=== PATIENT | male | born 1970 | race Caucasian/White ===

== ENCOUNTER 2018-05-08 14:12 | Emergency (ER) | payer BC ==
[2018-05-08] MEDS ORDERED: LORazepam 2 MG/ML SDV IVPUSH ONE ×2 (15:21→18:18)
[2018-05-08] MEDS ORDERED: Lactated Ringers 1,000 ML IV ONE ×2 (15:21→15:59)
[2018-05-08] MEDS ORDERED: Sodium Chloride 0.9% 10 ML Syringe FLUSH PRN (15:21)
[2018-05-08] MEDS ORDERED: Ondansetron 4 MG/2 ML SDV IVPUSH ONE (15:21)
[2018-05-08] MEDS: Potassium Chloride 10 MEQ in Premix Bag 1 BAG IV SCH ×2 (16:34→16:45)
--- NOTE | 2018-05-08 18:29 | EDM.PDOCBH ---
ED HPI GENERAL MEDICAL PROBLEM - General Chief Complaint: Drug or Alcohol Abuse Stated Complaint: VOMITING Time Seen by Provider: 05/08/18 15:10 Source of Information: Reports: Patient, Significant Other History Limitations: Reports: No Limitations - History of Present Illness INITIAL COMMENTS - FREE TEXT/NARRATIVE: 48 year old male presets for evaluation and treatment of nausea, vomiting and diarrhea. Reports he has been nauseated and vomiting since , about 2 weeks in total now. Reports 6-7 episodes of vomiting per day. Reports he noticed blood in his emesis the first day (04-28) but has had none since. Also reports diarrhea recently but states since he is vomiting everything up he has not had any diarrhea in the last few days. Reports feeling feverish, chilled and shaky. Denies any chest pain, abdominal pain or shortness of breath. Denies any hallucinations or seizures. Patient reports he used to drink alcohol heavily, is rather elusive with how recently he quite drinking heavily. Reports his last drink of alcohol was Thursday , his states he only had about 1/2 of a beer. States recently he has only been drinking a "couple" of beers per night and a few shots of whiskey. Has been drinking alcohol since about 1989. Denies any illicit drug usage. Patient denies any recent travel. Patient denies any ill contacts. Patient denies any recent antibiotic usage. - Related Data Allergies Allergy/AdvReac Type Severity Reaction Status Date / Time No Known Allergies Allergy Verified 05/08/18 14:39 Home Meds: Home Meds LORazepam [Ativan] 1 mg PO Q6H PRN #20 tab 05/08/18 [Rx] Ondansetron [Zofran ODT] 4 mg PO Q6H PRN #20 tab.dis 05/08/18 [Rx] Past Medical History Psychiatric History: Reports: Addiction Other Psychiatric History: alcohol Social & Family History - Tobacco Use Smoking Status *Q: Current Every Day Smoker Years of Tobacco use: 28 Packs/Tins Daily: 0.5 - Caffeine Use Caffeine Use: Reports: Coffee Other Caffeine Use: stopped drinking coffe just before and thought that is what the shaking is from - Recreational Drug Use Recreational Drug Use: No ED ROS GENERAL - Review of Systems Review Of Systems: See Below Constitutional: Reports: Fever, Chills Respiratory: Denies: Shortness of Breath Cardiovascular: Denies: Chest Pain GI/Abdominal: Reports: Diarrhea, Hematemesis (x1 about 2 weeks ago, none since) , Vomiting. Denies: Abdominal Pain Neurological: Reports: Tremors. Denies: Seizure Psychiatric: Denies: Depression, Hallucinations, Suicidal Ideation ED EXAM, BEHAVIORAL HEALTH - Physical Exam Exam: See Below Exam Limited By: No Limitations General Appearance: Alert, WD/WN, No Apparent Distress, Anxious Eye Exam: Bilateral Eye: Normal Inspection Ears: Normal External Exam Nose: Normal Inspection Throat/Mouth: Normal Inspection, Normal Lips, Normal Voice, No Airway Compromise , Other (dry mucus membranes) Respiratory/Chest: No Respiratory Distress, Lungs Clear, Normal Breath Sounds Cardiovascular: Normal Peripheral Pulses, Regular Rate, Rhythm, No Murmur GI/Abdominal: Normal Bowel Sounds, Soft, Non-Tender Neurological: Alert, Normal Mood/Affect, Normal Cognition, Tremor (bilteral hands) Psychiatric: Alert, Normal Affect, Normal Mood. No: Homicidal Thoughts, Suicidal Thoughts Skin Exam: Warm, Dry, Diaphoretic (slight), Pallor (slight) COURSE, BEHAVIORAL HEALTH COMP - Course Vital Signs: Last Vital Signs Temp 97.7 F 05/08/18 14:36 Pulse 93 05/08/18 14:36 Resp 20 05/08/18 14:36 BP 178/104 H 05/08/18 14:36 Pulse Ox 97 05/08/18 14:36 Orders, Labs, Meds: Laboratory Tests 05/08/18 05/08/18 05/08/18 Range/Units 14:50 14:50 15:00 WBC 5.32 (4.23-9.07) K/mm3 RBC 4.28 L (4.63-6.08) M/mm3 Hgb 14.6 (13.7-17.5) gm/L Hct 41.9 (40.1-51.0) % MCV 97.9 H (79.0-92.2) fl MCH 34.1 H (25.7-32.2) pg MCHC 34.8 (32.2-35.5) g/dl RDW Std Deviation 49.3 H (35.1-43.9) fL Plt Count 114 L (163-337) K/mm3 MPV 10.4 (9.4-12.3) fl Neutrophils % (Manual) 85 H (40-60) % Band Neutrophils % 0 (0-10) % Lymphocytes % (Manual) 11 L (20-40) % Atypical Lymphs % 0 % Monocytes % (Manual) 2 (2-10) % Eosinophils % (Manual) 1 (0.8-7.0) % Basophils % (Manual) 1 (0.2-1.2) Platelet Estimate Adequate RBC Morph Comment Normal Sodium (136-145) mEq/L Potassium (3.5-5.1) mEq/L Chloride (98-107) mEq/L Carbon Dioxide (21-32) mEq/L Anion Gap (5-15) BUN (7-18) mg/dL Creatinine (0.7-1.3) mg/dL Est Cr Clr Drug Dosing mL/min Estimated GFR (MDRD) (>60) mL/min BUN/Creatinine Ratio (14-18) Glucose (74-106) mg/dL Calcium (8.5-10.1) mg/dL Magnesium (1.8-2.4) mg/dl Total Bilirubin (0.2-1.0) mg/dL AST (15-37) U/L ALT (16-63) U/L Alkaline Phosphatase (46-116) U/L C-Reactive Protein (<1.0) mg/dL Total Protein (6.4-8.2) g/dl Albumin (3.4-5.0) g/dl Globulin gm/dL Albumin/Globulin Ratio (1-2) Urine Color Yellow (Yellow) Urine Appearance Slt cloudy H (Clear) Urine pH >=9.0 H (5.0-8.0) Ur Specific [place] 1.015 (1.005-1.030) Urine Protein 3+ H (Negative) Urine Glucose (UA) Negative (Negative) Urine Ketones 2+ H (Negative) Urine Occult Blood Negative (Negative) Urine Nitrite Negative (Negative) Urine Bilirubin 1+ H (Negative) Urine Urobilinogen 1.0 (0.2-1.0) Ur Leukocyte Esterase Negative (Negative) Urine RBC 0-5 (0-5) /hpf Urine WBC 0-5 (0-5) /hpf Ur Epithelial Cells 0-5 (0-5) /hpf Urine Bacteria Few (FEW) /hpf Urine Mucus Moderate H (FEW) /hpf Urine Opiates Screen Negative (NBHMQH=932) Ur Buprenorphine Scrn Negative (CUTOFF=10) Ur Oxycodone Screen Negative (DUV4TW=805) Urine Methadone Screen Negative (KBJ5GA=686) Ur Propoxyphene Screen Negative (EKKXXO=396) Ur Barbiturates Screen Negative (WEXJKG=489) Ur Tricyclics Screen Negative (EKVFIZ=554) Ur Phencyclidine Scrn Negative (CUTOFF=25) Ur Amphetamine Screen Negative (DQALIP=703) U Methamphetamines Scrn Negative (YRRJNG=682) U Benzodiazepines Scrn Negative (JHVNPK=625) U Cocaine Metab Screen Negative (YYPEIB=959) U Marijuana (THC) Screen Negative (CUTOFF=50) Ethyl Alcohol (0.00) gm% 05/08/18 05/08/18 Range/Units 15:00 15:00 WBC (4.23-9.07) K/mm3 RBC (4.63-6.08) M/mm3 Hgb (13.7-17.5) gm/L Hct (40.1-51.0) % MCV (79.0-92.2) fl MCH (25.7-32.2) pg MCHC (32.2-35.5) g/dl RDW Std Deviation (35.1-43.9) fL Plt Count (163-337) K/mm3 MPV (9.4-12.3) fl Neutrophils % (Manual) (40-60) % Band Neutrophils % (0-10) % Lymphocytes % (Manual) (20-40) % Atypical Lymphs % % Monocytes % (Manual) (2-10) % Eosinophils % (Manual) (0.8-7.0) % Basophils % (Manual) (0.2-1.2) Platelet Estimate RBC Morph Comment Sodium 144 (136-145) mEq/L Potassium 3.2 L (3.5-5.1) mEq/L Chloride 101 (98-107) mEq/L Carbon Dioxide 31 (21-32) mEq/L Anion Gap 15.2 H (5-15) BUN 9 (7-18) mg/dL Creatinine 1.0 (0.7-1.3) mg/dL Est Cr Clr Drug Dosing 94.29 mL/min Estimated GFR (MDRD) > 60 (>60) mL/min BUN/Creatinine Ratio 9.0 L (14-18) Glucose 160 H (74-106) mg/dL Calcium 9.2 (8.5-10.1) mg/dL Magnesium 2.1 (1.8-2.4) mg/dl Total Bilirubin 0.8 (0.2-1.0) mg/dL AST 172 H (15-37) U/L ALT 128 H (16-63) U/L Alkaline Phosphatase 63 (46-116) U/L C-Reactive Protein < 0.2 (<1.0) mg/dL Total Protein 7.9 (6.4-8.2) g/dl Albumin 4.3 (3.4-5.0) g/dl Globulin 3.6 gm/dL Albumin/Globulin Ratio 1.2 (1-2) Urine Color (Yellow) Urine Appearance (Clear) Urine pH (5.0-8.0) Ur Specific [place] (1.005-1.030) Urine Protein (Negative) Urine Glucose (UA) (Negative) Urine Ketones (Negative) Urine Occult Blood (Negative) Urine Nitrite (Negative) Urine Bilirubin (Negative) Urine Urobilinogen (0.2-1.0) Ur Leukocyte Esterase (Negative) Urine RBC (0-5) /hpf Urine WBC (0-5) /hpf Ur Epithelial Cells (0-5) /hpf Urine Bacteria (FEW) /hpf Urine Mucus (FEW) /hpf Urine Opiates Screen (OZEUVI=486) Ur Buprenorphine Scrn (CUTOFF=10) Ur Oxycodone Screen (HII2KL=273) Urine Methadone Screen (VMV6PV=374) Ur Propoxyphene Screen (WXEJUA=643) Ur Barbiturates Screen (GHPPGW=622) Ur Tricyclics Screen (ILPPSD=542) Ur Phencyclidine Scrn (CUTOFF=25) Ur Amphetamine Screen (AYOVWU=547) U Methamphetamines Scrn (UWEHPJ=684) U Benzodiazepines Scrn (WNIRCR=594) U Cocaine Metab Screen (HTPVKH=259) U Marijuana (THC) Screen (CUTOFF=50) Ethyl Alcohol 0.00 (0.00) gm% Medications Discontinued Medications Generic Name Dose Route Start Last Admin Trade Name Freq PRN Reason Stop Dose Admin Lactated Ringer's 1,000 mls @ 999 mls/hr 05/08/18 15:21 05/08/18 15:41 Ringers, Lactated IV 05/08/18 16:21 999 mls/hr .BOLUS ONE Administration Lactated Ringer's 1,000 mls @ 999 mls/hr 05/08/18 15:59 05/08/18 16:52 Ringers, Lactated IV 05/08/18 16:59 999 mls/hr .BOLUS ONE Administration Potassium Chloride 10 meq/ 100 mls @ 100 mls/hr 05/08/18 16:00 05/08/18 16:45 Premix IV 100 mls/hr ASDIRECTED LORENE Administration Lorazepam 1 mg 05/08/18 15:21 05/08/18 15:43 Ativan IVPUSH 05/08/18 15:22 1 mg ONETIME ONE Administration Lorazepam 1 mg 05/08/18 18:18 05/08/18 18:27 Ativan IVPUSH 05/08/18 18:19 1 mg ONETIME ONE Administration Ondansetron HCl 4 mg 05/08/18 15:21 05/08/18 15:42 Zofran IVPUSH 05/08/18 15:22 4 mg ONETIME ONE Administration Sodium Chloride 10 ml 05/08/18 15:21 05/08/18 15:42 Saline Flush FLUSH 10 ml ASDIRECTED PRN Administration Keep Vein Open Re-Assessment/Re-Exam: 18:19 I have reviewed the labs with the patient. Shakiness significantly improved with the ativan. Nausea improved and has not vomited while in the ER. I asked his to step out. He maintains he has not had a drink since Thursday. He does not feel that he is a heavy drinker. His labs however suggest he is drinking more than he eludes to evident by the elevated liver enzymes, slightly low platelets and elevated MCV and MVH. He denies any suicidal ideation. Plan will be to discharge him home with resources for counseling and alcohol addition in [facility]. I will prescribe him some ativan and zofran. I spoke with the patient's . She reports his sister dies of cancer recently and this has been very hard on him. She reports for the last 2 weeks he has not been active and is laying in bed. She reports he has told multiple family members his "kidneys are shutting down" despite having not been seen for any kidney problems. He has not been seen until today. She suspects he is depressed but has not made suicidal comments to her. Departure - Departure Time of Disposition: 18:19 Disposition: Home, Self-Care 01 Condition: Fair Clinical Impression: Vomiting, Alcohol withdrawal syndrome - Discharge Information *PRESCRIPTION DRUG MONITORING PROGRAM REVIEWED*: No *COPY OF PRESCRIPTION DRUG MONITORING REPORT IN PATIENT JOSH: No Prescriptions: LORazepam [Ativan] 1 mg PO Q6H PRN #20 tab PRN Reason: Anxiety Ondansetron [Zofran ODT] 4 mg PO Q6H PRN #20 tab.dis PRN Reason: Nausea Instructions: Alcohol Withdrawal, Vomiting, Adult Referrals: PCP,None [Primary Care Provider] - Cindy Campuzano PA-C [Physician Calenderer] - Additional Instructions: you were given medication in the ER that can make you drowsy while in the ER today. It is not recommended that you drive or operate machinery within 10 hours of taking this medication. He may take the Zofran 1 tab sublingual every 6-8 hours as needed for nausea. Ativan 1 tab every 6-8 hours as needed for shakiness and anxiety. make sure you are drinking plenty of fluids. Drink water, Gatorade or Powerade. Recommend a bland diet as tole. Recommendations include crackers, soup broth, yogurt etc. Recommend a probiotic. These are available [id number]. You may take an antidiarrheal medication to help the diarrhea you have been having. Recommend follow-up with family medicine this week. Here in [place] and recommend [facility] per Dr. Carballo. Please call [phone] to schedule with one of these providers. A brochure of local resources has been provided for you for help with alcohol abuse as well as counselors. Please return to the ER for symptoms change or worsen.
== END 2018-05-08 18:58 | disposition home or self-care (01) ==
LOC: JD.ED 14:12
DX: F10.239 Alcohol dependence with withdrawal, unspecified (principal); R11.10 Vomiting, unspecified; F17.210 Nicotine dependence, cigarettes, uncomplicated
CPT/HCPCS: 36415; 80053; 80306; 81001; 83735; 85007; 85027; 86140; 96361; 96365; 96375; 96376; 99284; G0480; J2060; J2405; J3480; J7120

== ENCOUNTER 2019-05-05 19:09 | Emergency (ER) | payer BC ==
--- NOTE | 2019-05-05 20:03 | EDM.PDOCBH ---
ED HPI GENERAL MEDICAL PROBLEM - General Chief Complaint: Behavioral/Psych Stated Complaint: RYANNE PERALES Time Seen by Provider: 05/05/19 20:02 - History of Present Illness INITIAL COMMENTS - FREE TEXT/NARRATIVE: 49-year-old male who is intoxicated has some suicidal ideation and intent. This started today the patient's been drinking quite heavily. 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 This last summer he went to rehab and did really well he was dry up until March. Then he started drinking again patient is accompanied by his he is cooperative. At this point he is not sure he wants to go back to rehab as he is already been through that. Ever, at this time the patient is cooperative and willing to allow an evaluation. The patient said he had a plan to kill himself but will not elaborate on it he did buy a couple of bottles of whiskey before his brought him brought him in. - Related Data Allergies Allergy/AdvReac Type Severity Reaction Status Date / Time shellfish derived Allergy Swelling Verified 05/05/19 19:45 Home Meds: Home Meds LORazepam [Ativan] 1 mg PO Q8H PRN #12 tablet 05/06/19 [Rx] Past Medical History Cardiovascular History: Reports: Hypertension Psychiatric History: Reports: Addiction, PTSD Other Psychiatric History: alcohol - Past Surgical History GI Surgical History: Reports: Hernia, Inguinal Social & Family History - Tobacco Use Smoking Status *Q: Current Every Day Smoker Years of Tobacco use: 30 Packs/Tins Daily: 1 - Caffeine Use Caffeine Use: Reports: Coffee, Soda Other Caffeine Use: stopped drinking coffe just before lyndsey and thought that is what the shaking is from ED ROS GENERAL - Review of Systems Review Of Systems: See Below Constitutional: Reports: No Symptoms HEENT: Reports: No Symptoms Respiratory: Reports: No Symptoms Cardiovascular: Reports: No Symptoms Endocrine: Reports: No Symptoms GI/Abdominal: Reports: No Symptoms : Reports: No Symptoms Musculoskeletal: Reports: No Symptoms Skin: Reports: No Symptoms Neurological: Reports: No Symptoms Psychiatric: Reports: Agitation, Anxiety, Suicidal Ideation. Denies: Hallucinations Hematologic/Lymphatic: Reports: No Symptoms Immunologic: Reports: No Symptoms ED EXAM, BEHAVIORAL HEALTH - Physical Exam Exam: See Below Exam Limited By: No Limitations General Appearance: Alert, No Apparent Distress Eye Exam: Bilateral Eye: Normal Inspection Ears: Normal External Exam, Normal Canal, Hearing Grossly Normal, Normal TMs Nose: Normal Inspection, Normal Mucosa, No Blood Throat/Mouth: Normal Teeth Head: Atraumatic, Normocephalic Neck: Normal Inspection, Supple, Non-Tender, Full Range of Motion. No: Lymphadenopathy (L), Lymphadenopathy (R) Respiratory/Chest: No Respiratory Distress, Lungs Clear, Normal Breath Sounds Cardiovascular: Regular Rate, Rhythm, No Edema, No Murmur GI/Abdominal: Normal Bowel Sounds, Soft, Non-Tender Rectal (Males) Exam: Perirectal Abscess Back Exam: Normal Inspection. No: CVA Tenderness (L), CVA Tenderness (R) Extremities: Normal Inspection, No Pedal Edema Neurological: Alert, No Motor/Sensory Deficits Psychiatric: Alert (Cooperative he is intoxicated however) COURSE, BEHAVIORAL HEALTH COMP - Course Vital Signs: Last Vital Signs Temp 36.0 C 05/05/19 19:40 Pulse 93 05/05/19 19:40 Resp 16 05/05/19 19:40 BP 157/100 H 05/05/19 19:40 Pulse Ox 97 05/05/19 19:40 Orders, Labs, Meds: Active Orders 24 hr Category Date Time Status Folic Acid Med 05/05/19 20:30 Active 1 mg IV DAILY Medication Orders Folic Acid (Folic Acid) 1 mg IV DAILY LORENE Last Admin: 05/05/19 20:45 Dose: 1 mg Laboratory Tests 05/05/19 05/05/19 05/05/19 Range/Units 20:25 20:25 20:25 WBC 7.64 (4.23-9.07) K/mm3 RBC 5.20 (4.63-6.08) M/mm3 Hgb 16.2 (13.7-17.5) gm/dl Hct 48.4 (40.1-51.0) % MCV 93.1 H D (79.0-92.2) fl MCH 31.2 (25.7-32.2) pg MCHC 33.5 (32.2-35.5) g/dl RDW Std Deviation 50.5 H (35.1-43.9) fL Plt Count 221 (163-337) K/mm3 MPV 9.6 (9.4-12.3) fl Neut % (Auto) 63.8 (34.0-67.9) % Lymph % (Auto) 30.5 (21.8-53.1) % [place] % (Auto) 4.8 L (5.3-12.2) % Eos % (Auto) 0.4 L (0.8-7.0) Baso % (Auto) 0.4 (0.1-1.2) % Neut # (Auto) 4.87 (1.78-5.38) K/mm3 Lymph # (Auto) 2.33 (1.32-3.57) K/mm3 [place] # (Auto) 0.37 (0.30-0.82) K/mm3 Eos # (Auto) 0.03 L (0.04-0.54) K/mm3 Baso # (Auto) 0.03 (0.01-0.08) K/mm3 PT 9.6 L (9.7-12.0) SECONDS INR < 0.93 Sodium 144 (136-145) mEq/L Potassium 4.5 (3.5-5.1) mEq/L Chloride 104 (98-107) mEq/L Carbon Dioxide 28 (21-32) mEq/L Anion Gap 16.5 H (5-15) BUN 15 (7-18) mg/dL Creatinine 0.9 (0.7-1.3) mg/dL Est Cr Clr Drug Dosing 103.64 mL/min Estimated GFR (MDRD) > 60 (>60) mL/min BUN/Creatinine Ratio 16.7 (14-18) Glucose 106 (74-106) mg/dL Calcium 9.7 (8.5-10.1) mg/dL Total Bilirubin 0.3 (0.2-1.0) mg/dL AST 69 H (15-37) U/L ALT 90 H (16-63) U/L Alkaline Phosphatase 80 (46-116) U/L Total Protein 8.2 (6.4-8.2) g/dl Albumin 4.5 (3.4-5.0) g/dl Globulin 3.7 gm/dL Albumin/Globulin Ratio 1.2 (1-2) TSH 3rd Generation (0.358-3.74) uIU/mL Urine Color (Yellow) Urine Appearance (Clear) Urine pH (5.0-8.0) Ur Specific [place] (1.005-1.030) Urine Protein (Negative) Urine Glucose (UA) (Negative) Urine Ketones (Negative) Urine Occult Blood (Negative) Urine Nitrite (Negative) Urine Bilirubin (Negative) Urine Urobilinogen (0.2-1.0) Ur Leukocyte Esterase (Negative) Urine RBC (0-5) /hpf Urine WBC (0-5) /hpf Ur Squamous Epith Cells (0-5) /hpf Urine Bacteria (FEW) /hpf Urine Mucus (FEW) /hpf Urine Opiates Screen (HWQNVH=212) Ur Buprenorphine Scrn (CUTOFF=10) Ur Oxycodone Screen (IKV8QQ=412) Urine Methadone Screen (KFJ3QW=619) Ur Propoxyphene Screen (ORAYCA=437) Ur Barbiturates Screen (NWVNWU=315) Ur Tricyclics Screen (NMBVEG=255) Ur Phencyclidine Scrn (CUTOFF=25) Ur Amphetamine Screen (PLOFBG=135) U Methamphetamines Scrn (OZUDUM=764) U Benzodiazepines Scrn (ZUMWHF=645) U Cocaine Metab Screen (TPPRRK=499) U Marijuana (THC) Screen (CUTOFF=50) Ethyl Alcohol 0.32 (0.00) gm% 05/05/19 05/05/19 05/05/19 Range/Units 20:25 20:50 20:50 WBC (4.23-9.07) K/mm3 RBC (4.63-6.08) M/mm3 Hgb (13.7-17.5) gm/dl Hct (40.1-51.0) % MCV (79.0-92.2) fl MCH (25.7-32.2) pg MCHC (32.2-35.5) g/dl RDW Std Deviation (35.1-43.9) fL Plt Count (163-337) K/mm3 MPV (9.4-12.3) fl Neut % (Auto) (34.0-67.9) % Lymph % (Auto) (21.8-53.1) % [place] % (Auto) (5.3-12.2) % Eos % (Auto) (0.8-7.0) Baso % (Auto) (0.1-1.2) % Neut # (Auto) (1.78-5.38) K/mm3 Lymph # (Auto) (1.32-3.57) K/mm3 [place] # (Auto) (0.30-0.82) K/mm3 Eos # (Auto) (0.04-0.54) K/mm3 Baso # (Auto) (0.01-0.08) K/mm3 PT (9.7-12.0) SECONDS INR Sodium (136-145) mEq/L Potassium (3.5-5.1) mEq/L Chloride (98-107) mEq/L Carbon Dioxide (21-32) mEq/L Anion Gap (5-15) BUN (7-18) mg/dL Creatinine (0.7-1.3) mg/dL Est Cr Clr Drug Dosing mL/min Estimated GFR (MDRD) (>60) mL/min BUN/Creatinine Ratio (14-18) Glucose (74-106) mg/dL Calcium (8.5-10.1) mg/dL Total Bilirubin (0.2-1.0) mg/dL AST (15-37) U/L ALT (16-63) U/L Alkaline Phosphatase (46-116) U/L Total Protein (6.4-8.2) g/dl Albumin (3.4-5.0) g/dl Globulin gm/dL Albumin/Globulin Ratio (1-2) TSH 3rd Generation 2.032 (0.358-3.74) uIU/mL Urine Color Yellow (Yellow) Urine Appearance Clear (Clear) Urine pH 6.0 (5.0-8.0) Ur Specific [place] > or = 1.030 (1.005-1.030) Urine Protein 2+ H (Negative) Urine Glucose (UA) Negative (Negative) Urine Ketones 1+ H (Negative) Urine Occult Blood Negative (Negative) Urine Nitrite Negative (Negative) Urine Bilirubin Negative (Negative) Urine Urobilinogen 0.2 (0.2-1.0) Ur Leukocyte Esterase Negative (Negative) Urine RBC Not seen (0-5) /hpf Urine WBC 0-5 (0-5) /hpf Ur Squamous Epith Cells Not seen (0-5) /hpf Urine Bacteria Few (FEW) /hpf Urine Mucus Many H (FEW) /hpf Urine Opiates Screen Negative (QHWQIX=718) Ur Buprenorphine Scrn Negative (CUTOFF=10) Ur Oxycodone Screen Negative (VUH1SQ=345) Urine Methadone Screen Negative (AJQ8DW=290) Ur Propoxyphene Screen Negative (HSVYQU=413) Ur Barbiturates Screen Negative (ZECUEI=985) Ur Tricyclics Screen Negative (UPJOAV=720) Ur Phencyclidine Scrn Negative (CUTOFF=25) Ur Amphetamine Screen Negative (KBUVEK=289) U Methamphetamines Scrn Negative (OPAGRE=670) U Benzodiazepines Scrn Negative (MBHUQH=327) U Cocaine Metab Screen Negative (JAIRBR=700) U Marijuana (THC) Screen Negative (CUTOFF=50) Ethyl Alcohol (0.00) gm% 05/06/19 Range/Units 05:47 WBC (4.23-9.07) K/mm3 RBC (4.63-6.08) M/mm3 Hgb (13.7-17.5) gm/dl Hct (40.1-51.0) % MCV (79.0-92.2) fl MCH (25.7-32.2) pg MCHC (32.2-35.5) g/dl RDW Std Deviation (35.1-43.9) fL Plt Count (163-337) K/mm3 MPV (9.4-12.3) fl Neut % (Auto) (34.0-67.9) % Lymph % (Auto) (21.8-53.1) % [place] % (Auto) (5.3-12.2) % Eos % (Auto) (0.8-7.0) Baso % (Auto) (0.1-1.2) % Neut # (Auto) (1.78-5.38) K/mm3 Lymph # (Auto) (1.32-3.57) K/mm3 [place] # (Auto) (0.30-0.82) K/mm3 Eos # (Auto) (0.04-0.54) K/mm3 Baso # (Auto) (0.01-0.08) K/mm3 PT (9.7-12.0) SECONDS INR Sodium (136-145) mEq/L Potassium (3.5-5.1) mEq/L Chloride (98-107) mEq/L Carbon Dioxide (21-32) mEq/L Anion Gap (5-15) BUN (7-18) mg/dL Creatinine (0.7-1.3) mg/dL Est Cr Clr Drug Dosing mL/min Estimated GFR (MDRD) (>60) mL/min BUN/Creatinine Ratio (14-18) Glucose (74-106) mg/dL Calcium (8.5-10.1) mg/dL Total Bilirubin (0.2-1.0) mg/dL AST (15-37) U/L ALT (16-63) U/L Alkaline Phosphatase (46-116) U/L Total Protein (6.4-8.2) g/dl Albumin (3.4-5.0) g/dl Globulin gm/dL Albumin/Globulin Ratio (1-2) TSH 3rd Generation (0.358-3.74) uIU/mL Urine Color (Yellow) Urine Appearance (Clear) Urine pH (5.0-8.0) Ur Specific [place] (1.005-1.030) Urine Protein (Negative) Urine Glucose (UA) (Negative) Urine Ketones (Negative) Urine Occult Blood (Negative) Urine Nitrite (Negative) Urine Bilirubin (Negative) Urine Urobilinogen (0.2-1.0) Ur Leukocyte Esterase (Negative) Urine RBC (0-5) /hpf Urine WBC (0-5) /hpf Ur Squamous Epith Cells (0-5) /hpf Urine Bacteria (FEW) /hpf Urine Mucus (FEW) /hpf Urine Opiates Screen (SIPQMC=267) Ur Buprenorphine Scrn (CUTOFF=10) Ur Oxycodone Screen (EMP6HZ=226) Urine Methadone Screen (IEX8DQ=649) Ur Propoxyphene Screen (PZELDJ=545) Ur Barbiturates Screen (NVTLQP=824) Ur Tricyclics Screen (HZUQVR=822) Ur Phencyclidine Scrn (CUTOFF=25) Ur Amphetamine Screen (HXOVQT=796) U Methamphetamines Scrn (KFIVSL=430) U Benzodiazepines Scrn (FURDTQ=064) U Cocaine Metab Screen (NRLNPU=187) U Marijuana (THC) Screen (CUTOFF=50) Ethyl Alcohol 0.05 (0.00) gm% Medications Generic Name Dose Route Start Last Admin Trade Name Freq PRN Reason Stop Dose Admin Folic Acid 1 mg 05/05/19 20:30 05/05/19 20:45 Folic Acid IV 1 mg DAILY LORENE Administration Discontinued Medications Generic Name Dose Route Start Last Admin Trade Name Freq PRN Reason Stop Dose Admin Lactated Ringer's 1,000 mls @ 999 mls/hr 05/05/19 20:23 05/05/19 20:42 Ringers, Lactated IV 05/05/19 21:23 999 mls/hr .BOLUS ONE Administration Thiamine HCl 100 mg/ Sodium 101 mls @ 202 mls/hr 05/05/19 20:23 Chloride IV 05/05/19 20:24 ONETIME ONE Magnesium Sulfate 2 gm/ Premix 50 mls @ 25 mls/hr 05/05/19 20:28 05/05/19 20: 43 IV 05/05/19 22:27 25 mls/hr ONETIME ONE Administration Ondansetron HCl 4 mg 05/05/19 20:23 05/05/19 20:47 Zofran IVPUSH 05/05/19 20:24 4 mg ONETIME ONE Administration Thiamine HCl 100 mg 05/05/19 20:35 05/05/19 20:46 Vitamin B-1 IVPUSH 05/05/19 20:36 100 mg ONETIME ONE Administration Thiamine HCl Confirm 05/05/19 20:35 05/05/19 20:47 Vitamin B-1 Administered 05/05/19 20:36 Not Given Dose 200 mg .ROUTE .STK-MED ONE Re-Assessment/Re-Exam: Patient was evaluated by social insurance specialist. He denies being suicidal at this time albeit he is still intoxicated we will reevaluate this in the morning the patient is pretty adamant about staying out of inpatient therapy he wants to attempt outpatient therapy again. He is really nervous about missing work and losing his job. However he does state if he falls off the wagon again that he would strongly consider inpatient therapy. Now at 07:12 on the morning of May 06 the patient rested all night without difficulty. He has now sobered up blood alcohol is 0.05. He denies any suicidal intent wishes or thoughts he thinks the whiskey just got a hold of him. He agrees to follow-up with [facility] as an outpatient and go to . At this time the patient be discharged back to the community. The patient will be given a few Ativan to help with the shakes he is cautioned in no uncertain terms however that he has to not take this before going to work or driving and after taking it he must allow 12 hours before driving or returning to work Departure - Departure Time of Disposition: 07:14 Disposition: Home, Self-Care 01 Clinical Impression: Alcoholism - Discharge Information Prescriptions: LORazepam [Ativan] 1 mg PO Q8H PRN #12 tablet PRN Reason: Anxiety Referrals: Dara Pritchard MD [Primary Care Provider] - Forms: ED Department Discharge Additional Instructions: Follow-up with [facility] and go to AA. Return to the emergency room with any questions problems, or if you think you will start drinking again. Sepsis Event Note - Evaluation Sepsis Screening Result: No Definite Risk - Focused Exam Vital Signs: Vital Signs Temp Pulse Resp BP Pulse Ox 05/05/19 19:40 36.0 C 93 16 157/100 H 97 Date Exam was Performed: 05/06/19 Time Exam was Performed: 07:10 - My Orders Last 24 Hours: My Active Orders 05/05/19 20:30 Folic Acid 1 mg IV DAILY - Assessment/Plan Last 24 Hours: My Active Orders 05/05/19 20:30 Folic Acid 1 mg IV DAILY
[2019-05-05] MEDS ORDERED: Thiamine 100 MG in Sodium Chloride 0.9% 100 ML IV ONE (20:23)
[2019-05-05] MEDS ORDERED: Lactated Ringers 1,000 ML IV ONE (20:23)
[2019-05-05] MEDS ORDERED: Ondansetron 4 MG/2 ML SDV IVPUSH ONE (20:23)
[2019-05-05] MEDS ORDERED: Magnesium Sulfate/Water 2 GM in Premix Bag 1 BAG IV ONE (20:28)
[2019-05-05] MEDS ORDERED: Folic Acid 50 MG/10 ML MDV IV SCH (20:30)
[2019-05-05] MEDS ORDERED: Thiamine 200 MG/2 ML MDV IVPUSH ONE (20:35)
[2019-05-05] MEDS ORDERED: Thiamine 200 MG/2 ML MDV ONE (20:35)
== END 2019-05-06 08:09 | disposition home or self-care (01) ==
LOC: JD.ED 19:09
DX: F10.229 Alcohol dependence with intoxication, unspecified (principal); I10 Essential (primary) hypertension; F17.210 Nicotine dependence, cigarettes, uncomplicated; Z91.013 Allergy to seafood; Y90.8 Blood alcohol level of 240 mg/100 ml or more
CPT/HCPCS: 36415; 80053; 80306; 80320; 81001; 84443; 85025; 85610; 99284; J2405; J3411; J3475; J7120; 99283; G0480